=== PATIENT | female | born 1965 | race Caucasian/White ===

== ENCOUNTER → 2017-07-10 | Outpatient (CLI) | payer OTHER ==
--- NOTE | 2017-07-10 11:12 | WOMENS IMAGING REPORT ---
EXAM DESCRIPTION: BONE DENSITY HIP/SPINE COMPLETED DATE/TIME: 07/10/2017 10:05 am REASON FOR STUDY: STRESS FRACTURE; M84.352A M84.352A STRESS FRACTURE, LEFT FEMUR, INITIAL ENCOUNTER FOR Z13.820 ENCOUNTER FOR SCREENING FOR OSTEOPOROSIS COMPARISON: None. TECHNIQUE: Dual-Energy X-ray Absorptiometry (DEXA) of the AP Spine and Hip. LIMITATIONS: None. FINDINGS: LUMBAR SPINE: The bone mineral density (BMD) measured from L1-L4 in the AP projection correlates with a T-score of -1.6, which is osteopenic as defined by the World Health Organization. HIP: The bone mineral density (BMD) measured in the left femoral neck at the hip correlates with a T-score of -2.4, which is borderline osteoporotic as defined by the World Health Organization. IMPRESSION: 1. LUMBAR SPINE: Osteopenic 2. HIP: Borderline osteoporotic COMMENT: The World Health Organization defines low BMD as follows: T-score: Normal: Greater than -1.0 Osteopenia: Between -1.0 and -2.5 Osteoporosis: Less than -2.5 without fractures Established osteoporosis: Less than -2.5 with fractures In general, you may wish to consider: Diagnosis Treatment Follow-up DEXA Normal BMD Prevention 2-3 years Osteopenia Prevention/Therapy 1-2 years Osteoporosis Therapy Yearly TECHNICAL DOCUMENTATION: JOB ID: [id number] 1979[employer]- All Rights Reserved
--- NOTE | 2017-07-10 17:01 | RADIOLOGY REPORT (SQ) ---
EXAM DESCRIPTION: NM WHOLE BODY BONE SCAN COMPLETED DATE/TIME: 07/10/2017 12:50 pm REASON FOR STUDY: STRESS FX, LEFT FEMUR, INITIAL ENCOUNTER M84.352A STRESS FRACTURE, LEFT FEMUR, IN ITIAL ENCOUNTER FOR Z13.820 ENCOUNTER FOR SCREENING FOR OSTEOPOROSIS COMPARISON: Left knee films 09/24/2016 RADIONUCLIDE AND DOSE: 19.2 millicuries Tc99m MDP. The route of agent administration: Intravenous. ADDITIONAL DRUGS AND DOSES: None. TECHNIQUE: Routine delayed images at 3 hours post radionuclide injection acquired of the bony skelet on including anterior and posterior whole-body projections and additional focused images of the bilat eral knees. LIMITATIONS: None. FINDINGS: BONES: There is increased uptake in the medial aspect of the left knee joint, along the me dial femoral condyle weight-bearing surface. Osteochondral fracture may be present. Remainder of the whole-body bone scan is otherwise unremarkable. KIDNEYS: Symmetric excretion without obstruction. OTHER: No other significant finding. IMPRESSION: Focal increased uptake in the left knee medial femoral condyle weight-bearing surface. This may represent an osteochondral fracture COMMENT: Quality measure 147: Current bone scan is compared with any available plain radiographs, p rior bone scans, and CT/MRI. TECHNICAL DOCUMENTATION: JOB ID: [id number] [employer]- All Rights Reserved
== END ==
LOC: WI 07-07 08:17
PROVIDERS: ATTEND Physician Assistant
DX: Z13.820 Encounter for screening for osteoporosis (principal); M84.352A Stress fracture, left femur, initial encounter for fracture
CPT/HCPCS: 78306; 77080; A9561; Q9969

== ENCOUNTER → 2018-10-04 | Outpatient (CLI) | payer OTHER ==
--- NOTE | 2018-10-04 10:46 | WOMENS IMAGING REPORT ---
EXAM DESCRIPTION: BONE DENSITY HIP/SPINE COMPLETED DATE/TIME: 10/04/2018 9:39 am REASON FOR STUDY: BONE DENSITY;M84.369S M84.369S STRESS FRACTURE, UNSPECIFIED TIBIA AND FIBULA, SEQ U COMPARISON: 2017 TECHNIQUE: Dual-Energy X-ray Absorptiometry (DEXA) of the AP Spine and Hip. LIMITATIONS: None. FINDINGS: LUMBAR SPINE: The bone mineral density (BMD) measured from L1-L4 in the AP projection correlates with a T-score of -1.7, previously -1.6, which is osteopenia as defined by the World Health Organization. HIP: The bone mineral density (BMD) measured in the left hip correlates with a T-score of -2.0, previously -2.4., which is osteopenia as defined by the World Health Organization. IMPRESSION: 1. LUMBAR SPINE: OSTEOPENIA. 2. HIP: OSTEOPENIA. COMMENT: The World Health Organization defines low BMD as follows: T-score: Normal: Greater than -1.0 Osteopenia: Between -1.0 and -2.5 Osteoporosis: Less than -2.5 without fractures Established osteoporosis: Less than -2.5 with fractures In general, you may wish to consider: Diagnosis Treatment Follow-up DEXA Normal BMD Prevention 2-3 years Osteopenia Prevention/Therapy 1-2 years Osteoporosis Therapy Yearly TECHNICAL DOCUMENTATION: JOB ID: [id number] [employer]- All Rights Reserved Reading location - IP/workstation name: [email or web address]
== END ==
LOC: WI 09:23
PROVIDERS: ATTEND Physician Assistant
DX: M85.88 Other specified disorders of bone density and structure, other site (principal)
CPT/HCPCS: 77080

== ENCOUNTER → 2019-09-10 | Outpatient (CLI) | payer OTHER ==
--- NOTE | 2019-09-10 09:50 | RADIOLOGY REPORT (SQ) ---
EXAM DESCRIPTION: CHEST PA/LATERAL COMPLETED DATE/TIME: 09/10/2019 8:50 am REASON FOR STUDY: PRE OP COMPARISON: 09/05/2010 EXAM PARAMETERS: NUMBER OF VIEWS: two views TECHNIQUE: Digital Frontal and Lateral radiographic views of the chest acquired. RADIATION DOSE: NA LIMITATIONS: none FINDINGS: LUNGS AND PLEURA: No opacities, masses or pneumothorax. No pleural effusion. MEDIASTINUM AND HILAR STRUCTURES: No masses or contour abnormalities. HEART AND VASCULAR STRUCTURES: Heart normal size. No evidence for failure. BONES: No acute findings. HARDWARE: None in the chest. OTHER: No other significant finding. IMPRESSION: NO SIGNIFICANT RADIOGRAPHIC FINDING IN THE CHEST. TECHNICAL DOCUMENTATION: JOB ID: [id number] 2010 [employer]- All Rights Reserved Reading location - IP/workstation name: [email or web address]
[2019-09-10 10:16] LABS: ABSOLUTE EOSINOPHILS # (AUTO) 0.1 10^3/uL (0.0-0.6); ABSOLUTE LYMPHOCYTES (AUTO) 1.7 10^3/uL (0.5-4.7); ABSOLUTE MONOCYTES (AUTO) 0.3 10^3/uL (0.1-1.4); ABSOLUTE NEUT (AUTO) 2.6 10^3/uL (1.7-8.2); BASOPHILS % (AUTO) 0.6 % (0-2); EOSINOPHILS % (AUTO) 2.7 % (0-6); HEMATOCRIT 37.4 % (36.0-47.0); HEMOGLOBIN 12.5 g/dL (12.0-15.5); LYMPHOCYTES % (AUTO) 35.1 % (13-45); MEAN CORPUSCULAR HEMOGLOBIN 30.2 pg (27.0-33.4); MEAN CORPUSCULAR HGB CONC 33.6 g/dL (32.0-36.0); MEAN CORPUSCULAR VOLUME 90 fl (80-97); PLATELET COUNT 317 10^3/uL (150-450); RED BLOOD COUNT 4.15 10^6/uL (3.72-5.28); SEGMENTED NEUTROPHILS % (AUTO) 54.6 % (42-78); TOTAL CELLS COUNTED % (AUTO) 100 %; WHITE BLOOD COUNT 4.8 10^3/uL (4.0-10.5)
[2019-09-10 10:30] LABS: ANION GAP 6 (5-19); BLOOD UREA NITROGEN 15 mg/dL (7-20); CALCIUM 9.7 mg/dL (8.4-10.2); CARBON DIOXIDE 33 mmol/L (22-30); CHLORIDE 101 mmol/L (98-107); GLUCOSE 90 mg/dL (75-110); POTASSIUM 4.9 mmol/L (3.6-5.0)
[2019-09-10 10:42] LABS: APPEARANCE,URINE CLEAR; BILIRUBIN,URINE NEGATIVE (NEGATIVE); COLOR,URINE YELLOW; GLUCOSE, URINE NEGATIVE (NEGATIVE); KETONES,URINE NEGATIVE (NEGATIVE); LEUKOCYTE ESTERASE,URINE NEGATIVE (NEGATIVE); NITRITE,URINE NEGATIVE (NEGATIVE); PROTEIN,URINE NEGATIVE (NEGATIVE); URINE SPECIFIC GRAVITY 1.005; UROBILINOGEN,URINE NEGATIVE mg/dL (<2.0)
--- NOTE | 2019-09-10 22:03 | EKG REPORT ---
SEVERITY:- ABNORMAL ECG - SINUS RHYTHM NONSPECIFIC T ABNORMALITIES, INFERIOR LEADS : Confirmed by: Torrey Veloz 10-Sep-2019 22:03:14
== END ==
LOC: OD 08:22
PROVIDERS: ATTEND Orthopaedic Surgery
DX: Z01.810 Encounter for preprocedural cardiovascular examination (principal); Z01.811 Encounter for preprocedural respiratory examination; Z01.812 Encounter for preprocedural laboratory examination; M17.12 Unilateral primary osteoarthritis, left knee
CPT/HCPCS: 36415; 71046; 80048; 81001; 85025; 93005; 93010

== ENCOUNTER 2019-10-03 05:26 | Day surgery (SDC) | payer OTHER ==
[~2019-10-03 05:26] MED LIST: BUPIVACAINE INJ/PF LIPOSOME/PF 266 MG/20 ML SDV INJ PRN; CEFAZOLIN INJ 1 GM VIAL IV PRN; IBUPROFEN 800 MG in NORMAL SALINE 250 ML IV PRN; LACTATED RINGERS 1000 ML IV PRN; LIDOCAINE 0.5% INJ-PF (5 MG/ML) 50 ML SDV SUBCUT PRN; OXYCODONE HCL SR 10 MG TABLET PO PRN; PANTOPRAZOLE SODIUM 20 MG TABLET.DR PO PRN; VANCOMYCIN HCL 1,000 MG in DEXTROSE 5%-WATER 250 ML IV PRN
[2019-10-03] MEDS ORDERED: OXYCODONE HCL SR 10 MG TABLET PO ONE (05:34)
[2019-10-03] MEDS ORDERED: CEFAZOLIN INJ 1 GM VIAL ONE (05:34)
[2019-10-03] MEDS ORDERED: PANTOPRAZOLE SODIUM 20 MG TABLET.DR PO ONE (05:34)
[2019-10-03] MEDS ORDERED: MIDAZOLAM 2 MG/2 ML INJ ONE (06:27)
[2019-10-03] MEDS ORDERED: PROPOFOL INJ 200 MG/20 ML VIAL IV ONE ×2 (06:27→10:00)
[2019-10-03] MEDS ORDERED: FENTANYL CITRATE INJ/PF 100 MCG/2 ML AMPUL ONE (06:27)
[2019-10-03] MEDS ORDERED: ONDANSETRON HCL INJ/PF 4 MG/2 ML SDV ONE (06:27)
[2019-10-03] MEDS ORDERED: TRANEXAMIC ACID INJ/PF 1,000 MG/10 ML SDV ONE ×2 (06:27→09:30)
[2019-10-03] MEDS ORDERED: DEXAMETHASONE SOD PHOSPHATE INJ 4 MG/1 ML VIAL ONE (06:27)
[2019-10-03] MEDS ORDERED: LIDOCAINE 0.5% INJ-PF (5 MG/ML) 50 ML SDV ONE (06:28)
[2019-10-03] MEDS ORDERED: BUPIVACAINE INJ/PF LIPOSOME/PF 266 MG/20 ML SDV ONE (07:09)
--- NOTE | 2019-10-03 07:11 | PDOC PROGRESS REPORT ---
Subjective Progress Note for:: 10/03/19 Reason For Visit: M17.12 UNILATERAL PRIMARY OSTEOARTHRITIS, LEFT KNE Preoperative consultation prior to scheduled left knee arthroplasty Physical Exam Vital Signs: Temp Pulse Resp BP Pulse Ox 36.5 C 63 18 127/82 H 97 10/03/19 05:30 10/03/19 05:30 10/03/19 05:30 10/03/19 05:30 10/03/19 05:30 Intake & Output 10/02/19 10/03/19 10/04/19 06:59 06:59 06:59 Intake Total 0 Balance 0 Assessment & Plan - Diagnosis (1) Arthritis of left knee Is this a current diagnosis for this admission?: Yes Plan: I have a long discussion with the patient and her today about the risks of coronavirus. I have informed them that the CDC, the [employer], and the Surgeon General [facility] of all recommended that elective surgery be curtailed during the pandemic. Also advised him that neighboring hospitals have stopped doing elective surgery. I have offered them the opportunity to reschedule at a later date. They are of the opinion that they wish to go forward with the surgery today as scheduled. They acknowledge that there is increased risks being in a hospital setting during the time of the pandemic. - Time Time Spent with patient: 15-24 minutes
[2019-10-03] MEDS ORDERED: MEPERIDINE HCL/PF INJ 25 MG/1 ML DISP.SYRIN IV PRN (07:54)
[2019-10-03] MEDS ORDERED: DIPHENHYDRAMINE HCL 50 MG/ML VIAL IV PRN ×2 (07:54→08:36)
[2019-10-03] MEDS ORDERED: FENTANYL CITRATE INJ/PF 100 MCG/2 ML AMPUL IV PRN ×3 (07:54)
[2019-10-03] MEDS ORDERED: ONDANSETRON HCL INJ/PF 4 MG/2 ML SDV IV PRN ×2 (07:54→08:36)
[2019-10-03] MEDS ORDERED: MORPHINE SULFATE 10 MG/ML INJ IV PRN (07:54)
[2019-10-03] MEDS ORDERED: PROMETHAZINE HCL INJ 25 MG/1 ML VIAL IV PRN ×2 (07:54)
--- NOTE | 2019-10-03 08:35 | Operative Report ---
Operative Report DATE OF SURGERY: 10/03/19 PREOPERATIVE DIAGNOSIS: Left knee arthritis OPERATION: Left knee arthroplasty SURGEON: CUATE SANTIAGO ANESTHESIA: Spinal TISSUE REMOVED OR ALTERED: Bone to pathology ESTIMATED BLOOD LOSS: 75 PROCEDURE: Implants used: Femur: Matthew triathlon size 5 CR uncemented femur Tibia: 4 uncemented tibia Tibial liner: 9 mm CS insert Patella: 35 mm oval uncemented patella Procedure with the patient supine on the operating table the left the limb is prepped and draped in a sterile fashion. The limb was elevated for exsanguination and the tourniquet inflated to 280 torr. A standard midline median parapatellar approach the knee is taken. Access is gained to the femoral canal through the intercondylar notch. Intramedullary alignment instrumentation used to resect 10 mm of distal femur in 5 of valgus. Sizing guide indicated a size 5 femur. Appropriate cutting jig is then used to fashion anterior posterior and chamfer cuts. A trial reduction femurs performed and this is judged to be adequate. Attention was next turned to the tibia. Using an extra medullary alignment system 9 millimeters was resected off the lateral tibial plateau. Evidence of non-resorbable suture over the anterior medial aspect of the tibial plateau. This is attempted to be removed with a rongeur but was only partial. This is sized to a size 4 tibia. A trial reduction was now performed with a 5 femur and a 4 tibia using a 9 millimeters spacer. It is full extension and central patellofemoral tracking. The articular surface the patella was next resected using an oscillating saw. All trial implants were removed. Above implants are impacted into position. The tourniquet was deflated hemostasis obtained the wound is then closed in layers using interrupted Vicryl followed by victorino. A sterile compressive dressing was applied and the patient returned to recovery room in satisfactory condition.
[2019-10-03] MEDS ORDERED: MAG HYDROX/AL HYDROX/SIMETH SUSP 30 ML UDCUP PO PRN (08:36)
[2019-10-03] MEDS ORDERED: ONDANSETRON 4 MG TAB.RAPDIS PO PRN (08:36)
[2019-10-03] MEDS ORDERED: RINGERS SOLUTION,LACTATED 1,000 ML IV PRN (08:36)
[2019-10-03] MEDS ORDERED: ZOLPIDEM TARTRATE 5 MG TABLET PO PRN (08:36)
[2019-10-03] MEDS ORDERED: ACETAMINOPHEN 325 MG TABLET PO PRN (08:36)
--- NOTE | 2019-10-03 09:32 | RADIOLOGY REPORT (SQ) ---
EXAM DESCRIPTION: KNEE LEFT 2 VIEWS COMPLETED DATE/TIME: 10/03/2019 9:22 am REASON FOR STUDY: Post OP -Long Cassette in PACU M17.12 UNILATERAL PRIMARY OSTEOARTHRITIS, LEFT KNE E COMPARISON: None. NUMBER OF VIEWS: Two view(s). TECHNIQUE: Digital radiographic images of the left knee post-procedure. LIMITATIONS: None. FINDINGS: BONES: No worrisome or unexpected findings post-procedure. DEVICE: Total knee arthroplasty. SOFT TISSUES: No worrisome findings. Expected postoperative soft tissue changes. IMPRESSION: SATISFACTORY POSTOPERATIVE LEFT KNEE. TECHNICAL DOCUMENTATION: JOB ID: [id number] 2010 [employer]- All Rights Reserved Reading location - IP/workstation name: [email or web address]
[2019-10-03] MEDS ORDERED: TRANEXAMIC ACID INJ/PF 1,000 MG/10 ML SDV IV ONE (10:00)
[2019-10-03] MEDS: OXYCODONE HCL IR 5 MG TABLET PO PRN ×2 (12:15→18:43)
[2019-10-03] MEDS: IBUPROFEN 800 MG in NORMAL SALINE 250 ML IV SCH ×2 (15:56→21:58)
[2019-10-03] MEDS: SENNOSIDES/DOCUSATE 8.6-50 MG 1 EACH TABLET PO SCH (18:43)
[2019-10-03] MEDS ORDERED: VANCOMYCIN HCL 1,000 MG in DEXTROSE 5%-WATER 250 ML IV ONE (20:36)
[2019-10-04] MEDS: OXYCODONE HCL SR 10 MG TABLET PO SCH ×2 (01:18→09:26)
[2019-10-04] MEDS ORDERED: PANTOPRAZOLE SODIUM 40 MG TABLET.DR PO SCH (06:00)
[2019-10-04 06:05] LABS: HEMATOCRIT 29.3 % (36.0-47.0); MEAN CORPUSCULAR HEMOGLOBIN 30.6 pg (27.0-33.4); MEAN CORPUSCULAR HGB CONC 34.3 g/dL (32.0-36.0); MEAN CORPUSCULAR VOLUME 89 fl (80-97); PLATELET COUNT 267 10^3/uL (150-450); RED BLOOD COUNT 3.29 10^6/uL (3.72-5.28); WHITE BLOOD COUNT 5.9 10^3/uL (4.0-10.5)
[2019-10-04] MEDS: IBUPROFEN 800 MG in NORMAL SALINE 250 ML IV SCH (06:25)
[2019-10-04] MEDS: OXYCODONE HCL IR 5 MG TABLET PO PRN (06:29)
[2019-10-04 06:31] LABS: ANION GAP 6 (5-19); BLOOD UREA NITROGEN 13 mg/dL (7-20); CALCIUM 8.7 mg/dL (8.4-10.2); CARBON DIOXIDE 31 mmol/L (22-30); CHLORIDE 101 mmol/L (98-107); GLUCOSE 125 mg/dL (75-110); POTASSIUM 4.3 mmol/L (3.6-5.0)
--- NOTE | 2019-10-04 08:47 | PDOC DISCHARGE SUMMARY ---
Impression - Admit/DC Date/PCP Admission Date/Primary Care Provider: 10/03/19 05:26 ANKITA PACK, Discharge Date: 10/04/19 - Discharge Diagnosis (1) Arthritis of left knee Is this a current diagnosis for this admission?: Yes - Additional Information Resuscitation Status: Full Code Discharge Diet: As Tolerated Discharge Activity: Balance Activity w/Rest Referrals: CUATE SANTIAGO MD [ACTIVE STAFF] - 10/13/19 10:15 am Home Medications: Alprazolam [Xanax 0.5 mg Tablet] 0.5 mg PO Q8HP PRN 09/20/19 Aripiprazole [Abilify] 15 mg PO DAILY 09/20/19 Escitalopram Oxalate [Lexapro] 20 mg PO QHS 09/20/19 Gabapentin [Neurontin] 1,200 mg PO QHS 09/20/19 Gabapentin [Neurontin] 600 mg PO QAM 09/20/19 Lamotrigine [Lamictal] 200 mg PO QHS 09/20/19 Levothyroxine Sodium [Synthroid 0.05 mg Tablet] 50 mcg PO Q6AM 09/20/19 Mv-Min/Iron/Folic/Calcium/Vitk [Women's Multivitamin Tablet] 1 tab PO DAILY 09/20/19 Teriparatide [Forteo] 20 mcg SQ DAILY 09/20/19 Triazolam 0.5 mg PO QHS 09/20/19 Doxepin HCl [Sinequan 25 Mg Capsule] 100 mg PO QHS 10/03/19 History of Present Illiness History of Present Illness: SARAH ANTHONY is a 54 year old female 54 yo wf with progressive L knee pain and functional disability secondary to o steoarthritis. Patient is admitted for elective left knee arthroplasty. Hospital Course Hospital Course: Patient is admitted through the operating where she undergoes an uncomplicated left knee arthroplasty. She is returned to the floor in satisfactory condition. She makes excellent progress with physical therapy. Pain is well controlled. Physical Exam Vital Signs: Temp Pulse Resp BP Pulse Ox 36.8 C 80 20 114/61 94 10/03/19 23:22 10/03/19 23:22 10/03/19 23:22 10/03/19 23:22 10/03/19 23:22 Intake & Output 10/03/19 10/04/19 10/05/19 06:59 06:59 06:59 Intake Total 0 2884 250 Output Total 25 Balance 0 2859 250 General appearance: PRESENT: no acute distress, obese Head exam: PRESENT: normocephalic Respiratory exam: PRESENT: unlabored Cardiovascular exam: PRESENT: RRR Musculoskeletal exam: PRESENT: other - Compressive dressing is removed from the left knee. Underlying OpSite dressing is clean dry and intact. Minimal pedal edema. Distal neurovascular examination is intact. Results Laboratory Results: WBC 5.9 10^3/uL (4.0-10.5) 10/04/19 05:45 RBC 3.29 10^6/uL (3.72-5.28) L 10/04/19 05:45 Hgb 10.0 g/dL (12.0-15.5) L 10/04/19 05:45 Hct 29.3 % (36.0-47.0) L 10/04/19 05:45 MCV 89 fl (80-97) 10/04/19 05:45 MCH 30.6 pg (27.0-33.4) 10/04/19 05:45 MCHC 34.3 g/dL (32.0-36.0) 10/04/19 05:45 RDW 14.0 % (11.5-14.0) 10/04/19 05:45 Plt Count 267 10^3/uL (150-450) 10/04/19 05:45 Sodium 137.7 mmol/L (137-145) 10/04/19 05:45 Potassium 4.3 mmol/L (3.6-5.0) 10/04/19 05:45 Chloride 101 mmol/L (98-107) 10/04/19 05:45 Carbon Dioxide 31 mmol/L (22-30) H 10/04/19 05:45 Anion Gap 6 (5-19) 10/04/19 05:45 BUN 13 mg/dL (7-20) 10/04/19 05:45 Creatinine 0.63 mg/dL (0.52-1.25) 10/04/19 05:45 Est GFR ( Amer) > 60 (>60) 10/04/19 05:45 Est GFR (MDRD) Non-Af > 60 (>60) 10/04/19 05:45 Glucose 125 mg/dL (75-110) H 10/04/19 05:45 Calcium 8.7 mg/dL (8.4-10.2) 10/04/19 05:45 Impressions: Knee X-Ray 10/03/19 08:37 IMPRESSION: SATISFACTORY POSTOPERATIVE LEFT KNEE. Plan Plan of Treatment: Weightbearing as tolerated with home health services and DME. Follow-up with Dr. Santiago and [facility] for surgery in 2 weeks for staple removal. Stroke Is this a Stroke Patient?: No Stroke Pt being discharged on Anti-thrombolytic therapy?: Yes Acute Heart Failure - Is this a Heart Failure Patient?: No
[2019-10-04] MEDS: SENNOSIDES/DOCUSATE 8.6-50 MG 1 EACH TABLET PO SCH (09:26)
[2019-10-04] MEDS ORDERED: PRENATAL VITAMIN W DHA CAPSULE PO SCH (10:00)
[2019-10-04] MEDS ORDERED: ASPIRIN 81 MG TABLET, ENT COATED PO SCH (10:00)
[2019-10-04 10:59] VITALS: BP 110/61
== END 2019-10-04 12:15 | disposition home health service (06) ==
LOC: UNDOADMIN 05:26 → OROUT 05:26 → INOR 05:26 → EDSTATUS 07:30 → INOR 10:18 → 4S 10:18 → OROUT 10-04 12:15 → UNDODISIN 10-04 12:15
PROVIDERS: ATTEND Orthopaedic Surgery
DX: M17.12 Unilateral primary osteoarthritis, left knee (principal); E03.9 Hypothyroidism, unspecified; F31.9 Bipolar disorder, unspecified; Z82.49 Family history of ischemic heart disease and other diseases of the circulatory system; Z80.0 Family history of malignant neoplasm of digestive organs; Z90.49 Acquired absence of other specified parts of digestive tract; Z98.84 Bariatric surgery status; Z79.899 Other long term (current) drug therapy; Z87.891 Personal history of nicotine dependence
CPT/HCPCS: 36415; 85027; 80048; 88305 ×2; 88311; 73560; 94799; 97530; 97110 ×2; 97116 ×2; 97162; 97535; 97166; 01402; 27447; C1776 ×3; C1713; J2250; J0690; J1100; J3490 ×7; J2405; J7060; J7050; J2704; J3370; C9290; J1741; J3010